=== PATIENT | female | born 1955 | race Caucasian/White ===

== ENCOUNTER 2017-10-24 11:54 | Emergency (ER) | payer MEDICARE ==
[~2017-10-24] VITALS: Ht 162.6 cm; Wt 88.6 kg
[2017-10-24 12:00] VITALS: BP 124/66; PULSE 81; RESP 20; TEMP 98; O2SAT 95
[2017-10-24] MEDS ORDERED: SPIRCAP INH (12:13)
--- NOTE | 2017-10-24 12:34 | PD ---
HPI Chief Complaint: Respiratory Symptoms Time Seen by Provider: 12:33 Travel History International Travel<30 days: No Contact w/Intl Traveler<30days: No Traveled to known affect area: No History of Present Illness HPI Patient presents with complaints of cough and sore throat for 1 day. Reports a history of emphysema and frequent pneumonia. Denies any nausea vomiting diarrhea or fever. Denies any new chest pain shortness of breath urinary or bowel symptoms. Normally uses oxygen as needed. PFSH Past Medical History Asthma: Yes COPD: Yes Respiratory: Yes ?: Not Past Surgical History Other Surgery: Yes (LUNG BIOPSY) Social History Alcohol Use: Yes Tobacco Use: No Substance Use: No Allergies-Medications (Allergen,Severity, Reaction): Coded Allergies: cephalexin (Verified Allergy, Intermediate, RASH, 10/24/17) Reported Meds & Prescriptions Reported Meds & Active Scripts Active Reported Spiriva Handihaler (Tiotropium Inh) 18 Mcg Cap 18 Mcg INH DAILY 1 capsule = 18 mcg Review of Systems General / Constitutional: No: Fever Eyes: No: Visual changes HENT: No: Headaches Cardiovascular: No: Chest Pain or Discomfort Respiratory: Positive: Cough, No: Shortness of Breath Gastrointestinal: No: Abdominal Pain Genitourinary: No: Dysuria Musculoskeletal: No: Pain Skin: No Rash Neurologic: No: Weakness Psychiatric: No: Depression Endocrine: No: Polydipsia Hematologic/Lymphatic: No: Easy Bruising Physical Exam Narrative GENERAL: Well-nourished, well-developed patient. SKIN: Focused skin assessment warm/dry. HEAD: Normocephalic. EYES: No scleral icterus. No injection or drainage. NECK: Supple, trachea midline. No JVD or lymphadenopathy. CARDIOVASCULAR: Regular rate and rhythm without murmurs, gallops, or rubs. RESPIRATORY: Decreased breath sounds equal bilaterally. No accessory muscle use. GASTROINTESTINAL: Abdomen soft, non-tender, nondistended. MUSCULOSKELETAL: No cyanosis, or edema. BACK: Nontender without obvious deformity. No CVA tenderness. Data Data Last Documented VS Vital Signs Date Time Temp Pulse Resp B/P (MAP) Pulse Ox O2 Delivery O2 Flow Rate FiO2 10/24/17 12:00 98.0 81 20 124/66 (85) 95 MDM Medical Decision Making Medical Screen Exam Complete: Yes Emergency Medical Condition: Yes Differential Diagnosis COPD exacerbation, pneumonia, bronchitis, allergies Narrative Course Assessment plan discussed with patient at bedside. Patient received IV Solu- Medrol. Diagnosis Primary Impression: COPD exacerbation Patient Instructions: General Instructions Additional Instructions: Rest fluids and Motrin, medications as prescribed, return to the emergency room with any onset of new symptoms, follow-up with mate ship/PCP Med/Other Pt SpecificInfo: Prescription(s) given Scripts Prednisone (21) 10 mg tab Dose Pack (Prednisone (21) 10 mg tab Dose Pack) 10 Mg Pack 10 MG PO DIRECTED for Inflammation, #1 DSPK 0 Refills Prov: Fabricio Low MD 10/24/17 Azithromycin (Zithromax Z-Tobin) 250 Mg Dspk 250 MG PO DIRECTED for Infection, #1 DSPK 0 Refills 500 MG (2 tabs) day 1, then 1 tab days 2-5. Prov: Fabricio Low MD 10/24/17 Disposition: 01 DISCHARGE HOME Condition: Good Fabricio Low MD Oct 24, 2017 12:34
[2017-10-24] MEDS ORDERED: ZITHTAB PO (12:38)
[2017-10-24] MEDS ORDERED: PRED10PA PO (12:38)
[2017-10-24] MEDS ORDERED: methylPREDNISolone SOD SUCC 125 MG/2 ML VIAL IM ONE (12:45)
== END 2017-10-24 13:07 | disposition home or self-care (01) ==
LOC: PHED 11:54
DX: J44.1 Chronic obstructive pulmonary disease with (acute) exacerbation (principal); Z87.01 Personal history of pneumonia (recurrent)
CPT/HCPCS: 96372; 99283; J2930